=== PATIENT | male | born 1960 | race Hispanic/Latino ===

== ENCOUNTER → 2024-05-06 | Day surgery (SDC) | payer MEDICARE ==
[~2024-05-06] MED LIST: ACETAMINOPHEN 1000 MG/100 ML IV ONE; ANTIBIOTIC28.4 GM; BUPIVACAINE HCL 0.5% INJ 30 ML VIAL INJ ONE; CYMBALTA30 MG; DEXAMETHASONE SOD PHOS INJ 4 MG/ML SDV ONE; DEXMEDETOMIDINE HCL 200 MCG/2 ML VIAL ONE; FENTANYL CITRATE/PF 100MCG/2 ML INJ ONE; HYDROCODON-ACE1 EAC9; LEVOTHYROXINE112 MCG PO; LIDOCAINE HCL 2% LOCAL INJ 5 ML SDV VIAL INJ ONE; MIDAZOLAM HCL 2 MG/2 ML VIAL ONE; NEOSTIGMINE 1 MG/ML 10ML VIAL ONE; OMEPRAZOLE40 MG PO; ONDANSETRON HCL INJ 2MG/ML 2ML 2 MG/ML VIAL ONE; PRAVASTATIN SOD20 MG; PROPOFOL IV EMULSION 10 MG/ML 20 ML VIAL ONE; SEVOFLURANE INHAL SOLN 250 ML PEN BTL ONE
[2024-05-06] MEDS: LACTATED RINGER'S 1,000 ML ONE (12:34)
[2024-05-06 13:16] VITALS: TEMP 97.6
[2024-05-06 14:00] VITALS: BP 117/70; PULSE 49; RESP 19; O2SAT 99
== END | disposition home or self-care (01) ==
LOC: OR 09:49
PROVIDERS: ATTEND Podiatrist Foot & Ankle Surgery
DX: S92.352A Displaced fracture of fifth metatarsal bone, left foot, initial encounter for closed fracture (principal); S96.812A Strain of other specified muscles and tendons at ankle and foot level, left foot, initial encounter; I10 Essential (primary) hypertension; E78.5 Hyperlipidemia, unspecified; K21.9 Gastro-esophageal reflux disease without esophagitis; F17.210 Nicotine dependence, cigarettes, uncomplicated; X58.XXXA Exposure to other specified factors, initial encounter; Z79.899 Other long term (current) drug therapy
CPT/HCPCS: 28122; 28202; 76000; 93005; C1713; J0131; J0690; J1100; J2003; J2250; J2405; J2704; J2710; J3010; J7121; Q4150

== ENCOUNTER 2024-07-01 10:50 | Inpatient (IN) | payer MEDICARE ==
[~2024-07-01] VITALS: Ht 177.8 cm; Wt 84.4 kg
[~2024-07-01 10:50] MED LIST changes: -ACETAMINOPHEN 1000 MG/100 ML IV ONE; -BUPIVACAINE HCL 0.5% INJ 30 ML VIAL INJ ONE; -DEXAMETHASONE SOD PHOS INJ 4 MG/ML SDV ONE; -DEXMEDETOMIDINE HCL 200 MCG/2 ML VIAL ONE; -FENTANYL CITRATE/PF 100MCG/2 ML INJ ONE; -LIDOCAINE HCL 2% LOCAL INJ 5 ML SDV VIAL INJ ONE; -MIDAZOLAM HCL 2 MG/2 ML VIAL ONE; -NEOSTIGMINE 1 MG/ML 10ML VIAL ONE; -ONDANSETRON HCL INJ 2MG/ML 2ML 2 MG/ML VIAL ONE; -PROPOFOL IV EMULSION 10 MG/ML 20 ML VIAL ONE; -SEVOFLURANE INHAL SOLN 250 ML PEN BTL ONE
[2024-07-01 11:12] VITALS: TEMP 98.4
[2024-07-01 11:41] LABS: BASOPHILS % 0.5 % (0.0-1.0); EOSINOPHILS # (AUTO) 0.3 (0.0-0.4); EOSINOPHILS % 3.9 % (0.0-6.0); HEMATOCRIT 40.7 % (38.2-49.6); HEMOGLOBIN 12.8 g/dL (14.0-18.0); LYMPHOCYTES # (AUTO) 1.6 (1.0-3.2); LYMPHOCYTES % 18.3 % (18.0-39.1); MEAN CORPUSCULAR HEMOGLOBIN 30.3 pg (28-32); MEAN CORPUSCULAR HGB CONC 31.4 g/dL (31-35); MEAN CORPUSCULAR VOLUME 96.2 fL (81-99); MONOCYTES # (AUTO) 0.7 (0.2-0.8); MONOCYTES % 8.1 % (4.4-11.3); NEUTROPHILS # (AUTO) 5.9 (2.1-6.9); PLATELET COUNT 166 x10e3/uL (140-360); RED BLOOD COUNT 4.23 x10e6/uL (4.3-5.7); RED CELL DISTRIBUTION WIDTH 13.9 % (11.7-14.4); WHITE BLOOD COUNT 8.49 x10e3/uL (4.8-10.8)
[2024-07-01] MEDS ORDERED: SODIUM CHLORIDE FLUSH 10 ML SYR INJ PRN (12:00)
[2024-07-01] MEDS ORDERED: ONDANSETRON HCL INJ 2MG/ML 2ML 2 MG/ML VIAL IV PRN (12:00)
[2024-07-01 12:02] LABS: ALBUMIN 4.1 g/dL (3.5-5.0); ALBUMIN/GLOBULIN RATIO 1.2 (0.8-2.0); ANION GAP 16.6 mmol/L (8-16); BILIRUBIN,TOTAL 0.7 mg/dL (0.2-1.2); CALCIUM 9.3 mg/dL (8.4-10.2); CREATININE, SERUM 0.92 mg/dL (0.72-1.25); POTASSIUM 4.6 mmol/L (3.5-5.1); TOTAL PROTEIN 7.5 g/dL (6.5-8.1)
[2024-07-01] MEDS: Vancomycin IV 1 GM in SODIUM CHLORIDE 0.9% 250ML 250 ML IV SCH (12:39)
[2024-07-01 14:00] VITALS: PULSE 66; RESP 16
[2024-07-01] MEDS ORDERED: DOCUSATE SODIUM 100 MG CAP PO PRN (15:15)
[2024-07-01] MEDS ORDERED: METOPROLOL TARTRATE INJ 1 MG/ML VIAL IV PRN (15:15)
[2024-07-01] MEDS ORDERED: SIMETHICONE 80 MG CHEW PO PRN (15:15)
[2024-07-01] MEDS ORDERED: ALBUTEROL/IPRATROPIUM 3 ML NEB NEB PRN (15:15)
[2024-07-01] MEDS: ENOXAPARIN SOD INJ 40 MG/0.4 ML SYR SC SCH (16:58)
[2024-07-01 20:00] VITALS: BP 111/75; PULSE 64; RESP 18; TEMP 97.8; O2SAT 100
[2024-07-01] MEDS: SIMVASTATIN 20 MG TAB PO SCH (20:37)
[2024-07-01] MEDS: ACETAMINOPHEN 325 MG TAB PO PRN (21:17)
[2024-07-01] MEDS: MELATONIN 3 MG TAB PO PRN (21:17)
[2024-07-01 22:25] VITALS: BP 111/75; PULSE 64; RESP 18; TEMP 97.8; O2SAT 100
[2024-07-01 22:26] VITALS: BP 111/75; PULSE 64; RESP 18; TEMP 97.8; O2SAT 100
[2024-07-02] VITALS (8 sets, daily range): BP systolic 106–127; BP diastolic 55–96; PULSE 58–71; RESP 18–19; TEMP 97.4–98.6; O2SAT 99–100
[2024-07-02] MEDS: LEVOTHYROXINE SODIUM 75 MCG TAB PO SCH (05:19)
[2024-07-02 06:04] LABS: BASOPHILS # (AUTO) 0.1 (0.0-0.1); BASOPHILS % 1.3 % (0.0-1.0); EOSINOPHILS # (AUTO) 0.6 (0.0-0.4); EOSINOPHILS % 12.2 % (0.0-6.0); LYMPHOCYTES # (AUTO) 1.4 (1.0-3.2); LYMPHOCYTES % 29.8 % (18.0-39.1); MEAN CORPUSCULAR HEMOGLOBIN 30.6 pg (28-32); MEAN CORPUSCULAR HGB CONC 33.3 g/dL (31-35); MEAN CORPUSCULAR VOLUME 91.8 fL (81-99); MONOCYTES # (AUTO) 0.5 (0.2-0.8); MONOCYTES % 9.9 % (4.4-11.3); NEUTROPHILS # (AUTO) 2.2 (2.1-6.9); NEUTROPHILS % 46.6 % (38.7-80.0); PLATELET COUNT 160 x10e3/uL (140-360); RED BLOOD COUNT 3.92 x10e6/uL (4.3-5.7); RED CELL DISTRIBUTION WIDTH 13.8 % (11.7-14.4); WHITE BLOOD COUNT 4.76 x10e3/uL (4.8-10.8)
[2024-07-02 06:33] LABS: ALBUMIN 3.5 g/dL (3.5-5.0); ALBUMIN/GLOBULIN RATIO 1.3 (0.8-2.0); ANION GAP 12.5 mmol/L (8-16); BILIRUBIN,TOTAL 0.7 mg/dL (0.2-1.2); CALCIUM 9.1 mg/dL (8.4-10.2); CREATININE, SERUM 0.88 mg/dL (0.72-1.25); POTASSIUM 4.5 mmol/L (3.5-5.1); TOTAL PROTEIN 6.2 g/dL (6.5-8.1)
[2024-07-02] MEDS: PANTOPRAZOLE SODIUM 20 MG TABLET.DR PO SCH (08:24)
[2024-07-02] MEDS: SENNOSIDES 8.6 MG TAB PO SCH (08:25)
[2024-07-02] MEDS: DULOXETINE HCL 30 MG DELAYED RELEASE PO SCH (08:25)
[2024-07-03] VITALS: BP 143/80; PULSE 72; RESP 18; TEMP 97.5; O2SAT 100
[2024-07-03 04:00] VITALS: BP 113/68; PULSE 64; RESP 18; TEMP 97.8; O2SAT 100
[2024-07-03 06:22] LABS: ANION GAP 13.3 mmol/L (8-16); CALCIUM 8.4 mg/dL (8.4-10.2); CREATININE, SERUM 0.97 mg/dL (0.72-1.25); POTASSIUM 4.3 mmol/L (3.5-5.1)
[2024-07-03 08:00] VITALS: BP 119/84; PULSE 63; RESP 19; TEMP 97.9; O2SAT 100
[2024-07-03 11:58] VITALS: BP 116/73; PULSE 64; RESP 21; TEMP 97.9; O2SAT 100
[2024-07-03 15:51] VITALS: BP 121/90; PULSE 65; RESP 22; TEMP 98.1; O2SAT 99
[2024-07-03 20:00] VITALS: BP 121/78; PULSE 60; RESP 18; TEMP 98.2; O2SAT 100
[2024-07-03] MEDS: COLLAGENASE 5 GM TUBE TP SCH (21:00)
[2024-07-04] VITALS (9 sets, daily range): BP systolic 103–123; BP diastolic 69–80; PULSE 58–67; RESP 17–20; TEMP 97.6–98.5; O2SAT 98–100
[2024-07-04] MEDS: VANCOMYCIN 1.25GM/250 ML (PEG) 250 ML IV SCH (00:27)
[2024-07-05] VITALS (9 sets, daily range): BP systolic 95–128; BP diastolic 61–71; PULSE 52–68; RESP 16–19; TEMP 97.8–98.5; O2SAT 97–100
[2024-07-05 07:53] LABS: ABG HCO3 14 mmol/L (22-26); ABG PCO2 27 mmHg (35-45); ABG PH 7.33 (7.35-7.45); ABG PO2 40 mmHg (80-105); ABG TCO2 15
[2024-07-05] MEDS: Vancomycin IV 1 GM in SODIUM CHLORIDE 0.9% 250ML 250 ML IV SCH (23:40)
[2024-07-06] VITALS (10 sets, daily range): BP systolic 96–133; BP diastolic 57–93; PULSE 56–77; RESP 18–20; TEMP 97.8–98.3; O2SAT 95–100
[2024-07-06 07:06] LABS: ABG HCO3 26 mmol/L (22-26); ABG PCO2 47 mmHg (35-45); ABG PH 7.34 (7.35-7.45); ABG PO2 60 mmHg (80-105); ABG TCO2 27
[2024-07-06] MEDS ORDERED: SODIUM CHLORIDE 0.9% 250ML 250 ML ONE (12:25)
[2024-07-07] VITALS (8 sets, daily range): BP systolic 90–121; BP diastolic 62–73; PULSE 57–73; RESP 18–20; TEMP 97.7–98.3; O2SAT 95–100
[2024-07-07] MEDS: DAPTOMYCIN 500mg 10ML 500 MG in SODIUM CHLORIDE 0.9% 100 ML IV SCH (13:00)
== END 2024-07-07 20:40 | disposition home or self-care (01) | DRG 593 ==
LOC: ER 10:56 → ERHOLD 11:53 → MED/SURG2 18:46
PROVIDERS: ADMIT Internal Medicine; ATTEND Internal Medicine
PROC: 02HV33Z Insertion of Infusion Device into Superior Vena Cava, Percutaneous Approach (ICD-10-PCS; 2024-07-03)
PROC: 4A133R1 Monitoring of Arterial Saturation, Peripheral, Percutaneous Approach (ICD-10-PCS; principal; 2024-07-04)
DX: L97.518 Non-pressure chronic ulcer of other part of right foot with other specified severity (principal); L03.115 Cellulitis of right lower limb; M86.9 Osteomyelitis, unspecified; I10 Essential (primary) hypertension; E03.9 Hypothyroidism, unspecified; E78.5 Hyperlipidemia, unspecified; R01.1 Cardiac murmur, unspecified; K21.9 Gastro-esophageal reflux disease without esophagitis; B95.7 Other staphylococcus as the cause of diseases classified elsewhere; F39 Unspecified mood [affective] disorder; Z79.890 Hormone replacement therapy; F17.210 Nicotine dependence, cigarettes, uncomplicated
CPT/HCPCS: 36415; 36569; 71045; 71250; 80048; 80053; 80061; 80202; 82805; 83036; 85025; 86140; 87040; 87071; 87186; 87205; 93005; 93926; 94799; 99252; 99284; J1650; J2543; J7050

== ENCOUNTER 2024-08-21 14:19 | Outpatient (RCR) | payer MEDICARE | END 2024-08-28 | LOC: WCC 14:19 | PROVIDERS: ATTEND Nurse Practitioner Family | DX: S91.309A Unspecified open wound, unspecified foot, initial encounter (principal) ==

== ENCOUNTER → 2024-09-09 | Outpatient (REF) | payer MEDICARE | LOC: RAD 09:13 | PROVIDERS: ATTEND Nurse Practitioner Family | DX: M86.671 Other chronic osteomyelitis, right ankle and foot (principal) | CPT/HCPCS: 71046 ==

== ENCOUNTER → 2024-09-16 | Outpatient (REF) | payer MEDICARE | LOC: RAD 08:46 | PROVIDERS: ATTEND Nurse Practitioner Family | DX: M86.671 Other chronic osteomyelitis, right ankle and foot (principal) | CPT/HCPCS: 93005 ==

== ENCOUNTER → 2024-09-25 | Outpatient (RCR) | payer MEDICARE ==
[2024-09-04 15:48] LABS: BASOPHILS # (AUTO) 0.1 (0.0-0.1); BASOPHILS % 0.8 % (0.0-1.0); EOSINOPHILS # (AUTO) 0.3 (0.0-0.4); EOSINOPHILS % 5.2 % (0.0-6.0); HEMATOCRIT 33.2 % (38.2-49.6); HEMOGLOBIN 10.9 g/dL (14.0-18.0); LYMPHOCYTES # (AUTO) 1.6 (1.0-3.2); LYMPHOCYTES % 26.4 % (18.0-39.1); MEAN CORPUSCULAR HEMOGLOBIN 29.5 pg (28-32); MEAN CORPUSCULAR HGB CONC 32.8 g/dL (31-35); MEAN CORPUSCULAR VOLUME 89.7 fL (81-99); MONOCYTES # (AUTO) 0.6 (0.2-0.8); MONOCYTES % 10.8 % (4.4-11.3); NEUTROPHILS # (AUTO) 3.3 (2.1-6.9); NEUTROPHILS % 56.6 % (38.7-80.0); PLATELET COUNT 170 x10e3/uL (140-360); RED CELL DISTRIBUTION WIDTH 13.9 % (11.7-14.4); WHITE BLOOD COUNT 5.91 x10e3/uL (4.8-10.8)
[2024-09-04 16:09] LABS: ALBUMIN/GLOBULIN RATIO 1.4 (0.8-2.0); ANION GAP 13.4 mmol/L (8-16); BILIRUBIN,TOTAL 0.4 mg/dL (0.2-1.2); CALCIUM 8.7 mg/dL (8.4-10.2); CREATININE, SERUM 1.13 mg/dL (0.72-1.25); POTASSIUM 4.4 mmol/L (3.5-5.1); TOTAL PROTEIN 6.8 g/dL (6.5-8.1)
== END ==
LOC: WCC 09-04 13:34
PROVIDERS: ATTEND Nurse Practitioner Family
DX: S91.309A Unspecified open wound, unspecified foot, initial encounter (principal)
CPT/HCPCS: 36415; 80053; 83036; 84134; 84550; 85025; 99212 ×2; 99213 ×3; G0277 ×5

== ENCOUNTER 2024-09-30 09:27 | Outpatient (RCR) | payer MEDICARE ==
[~2024-09-30 09:27] MED LIST changes: +MINERAL OIL/PETROLAT/GLYCERI 6OZ BTL ONE
[2024-10-28] MEDS ORDERED: abx PO (11:06)
== END 2024-10-26 ==
LOC: WCC 09:27
PROVIDERS: ATTEND Internal Medicine Infectious Disease
DX: S91.309A Unspecified open wound, unspecified foot, initial encounter (principal); M86.671 Other chronic osteomyelitis, right ankle and foot
CPT/HCPCS: 99213 ×3; G0277 ×3

== ENCOUNTER → 2024-10-28 | Day surgery (SDC) | payer MEDICARE ==
[~2024-10-28] MED LIST changes: +ACETAMINOPHEN 1000 MG/100 ML 100 ML IV ONE; +BUPIVACAINE/EPI 0.5% 30ML SDV-MPF INJ ONE; +DEXAMETHASONE SOD PHOS INJ 4 MG/ML SDV ONE; +EPHEDRINE SULFATE INJ 50 MG/ML VIAL ONE; +FENTANYL CITRATE/PF 100MCG/2 ML INJ ONE; +LACTATED RINGER'S 1,000 ML ONE; +LIDOCAINE HCL 2% LOCAL INJ 5 ML SDV VIAL INJ ONE; +MIDAZOLAM HCL 2 MG/2 ML VIAL ONE; -MINERAL OIL/PETROLAT/GLYCERI 6OZ BTL ONE; +ONDANSETRON HCL INJ 2MG/ML 2ML 2 MG/ML VIAL ONE; +PROPOFOL IV EMULSION 10 MG/ML 20 ML VIAL ONE; +SEVOFLURANE INHAL SOLN 250 ML PEN BTL ONE; +abx PO
[2024-10-28 13:29] VITALS: TEMP 97.9
[2024-10-28 15:00] VITALS: BP 125/62; PULSE 53; RESP 16; O2SAT 95
== END | disposition home or self-care (01) ==
LOC: OR 09:51
PROVIDERS: ATTEND Podiatrist Foot & Ankle Surgery
DX: M76.71 Peroneal tendinitis, right leg (principal); M25.774 Osteophyte, right foot; E11.621 Type 2 diabetes mellitus with foot ulcer; I10 Essential (primary) hypertension; E78.5 Hyperlipidemia, unspecified; E03.9 Hypothyroidism, unspecified; K21.9 Gastro-esophageal reflux disease without esophagitis; F32.A Depression, unspecified; F17.210 Nicotine dependence, cigarettes, uncomplicated; Z79.899 Other long term (current) drug therapy
CPT/HCPCS: 14040; 28122; 28200; 87070; 87071; 87075; 87186; 87205; C1713; C1762; J0131; J0690; J1100; J2003; J2250; J2405; J2704; J3010; J7121